=== PATIENT | male | born 1980 | race Caucasian/White ===

== ENCOUNTER → 2021-02-21 | Outpatient (CLI) | payer OTHER ==
--- NOTE | 2021-02-21 11:05 | MR ---
EXAMINATION TYPE: MR lumbar spine wo con DATE OF EXAM: 02/21/2021 COMPARISON: NONE HISTORY: Low back pain, numbness in feet and both legs for several years. TECHNIQUE: T1 and T2 axial and sagittal images of the lumbar spine are submitted. FINDINGS: There is no abnormal signal seen within the visualized spinal cord or paraspinal soft tissu es. At L1-2 there is mild hypertrophic change of the facets. There is mild disc desiccation. No foraminal encroachment or canal stenosis. No discrete disc herniation. At L2-3 there is no disc herniation or canal stenosis. Mild hypertrophic change of the facets. Neural foramina patent. No focal herniation or canal stenosis At L3-4 there is disc desiccation and degenerative disc disease with annular tear and broad-based dis c protrusion resulting in mild effacement of thecal sac. There is facet arthropathy and mild bilatera l foraminal encroachment. Borderline to mild central stenosis. Diminutive spinal canal contributes. At L4-5 there is degenerative disc disease with disc desiccation and annular tear. Broad-based disc p rotrusion results in mild effacement of thecal sac with borderline to mild central stenosis. Hypertro phic change of the facets and ligamentum flavum diminutive spinal canal contributes. Mild bilateral f oraminal encroachment. At L5-S1 there is no disc herniation or canal stenosis. Mild facet arthropathy. IMPRESSION: 1. Multilevel degenerative disc disease with annular tear L3-4 and L4-5. Hypertrophic change of the f acets contribute to mild bilateral foraminal encroachment and borderline to mild canal stenosis at th eladio levels.
== END | disposition home or self-care (01) ==
LOC: RADMRIMAIN 09:13
PROVIDERS: ATTEND Nurse Practitioner Acute Care
DX: M51.16 Intervertebral disc disorders with radiculopathy, lumbar region (principal); M48.061 Spinal stenosis, lumbar region without neurogenic claudication
CPT/HCPCS: 72148